=== PATIENT | male | born 1955 | race Caucasian/White ===

== ENCOUNTER 2020-01-06 07:04 | Day surgery (SDC) | payer BC ==
[2020-01-06] MEDS ORDERED: Midazolam 1 MG/ML 2 ML SDV IV ONE (07:05)
[2020-01-06] MEDS ORDERED: Propofol 200 MG/20 ML SDV IV ONE (07:05)
[2020-01-06] MEDS ORDERED: Sodium Chloride 0.9% 10 ML Syringe FLUSH PRN (07:15)
[2020-01-06] MEDS ORDERED: Lactated Ringers 1,000 ML IV SCH (07:15)
--- NOTE | 2020-01-06 09:19 | PCM.OPNOTE ---
- General Post-Op/Procedure Note Date of Surgery/Procedure: 01/06/20 Operative Procedure(s): c scope with biopsy Findings: sigmoid diverticulosis descending colon polyp Pre Op Diagnosis: + Cologuard Post-Op Diagnosis: sigmoid diverticulosis. descending colon polyp Anesthesia Technique: MAC Primary Surgeon: Nabeel Ventura Anesthesia Provider: Alley Hsu Pathology: descending colon polyp Complications: None Condition: Good Free Text/Narrative:: see dictation
--- NOTE | 2020-01-06 13:59 | OR ---
DATE OF OPERATION: 01/06/2020 SURGEON: Nabeel Ventura MD PROCEDURE PERFORMED: Colonoscopy with cold forceps biopsy. PREOPERATIVE DIAGNOSIS: Positive Cologuard test. POSTOPERATIVE DIAGNOSIS: Descending colon polyp, as well as sigmoid diverticulosis. INDICATIONS FOR PROCEDURE: This is a 64-year-old white male who recently underwent a Cologuard test, this came back positive. He was offered and accepted a colonoscopy for diagnostic purposes. DESCRIPTION OF OPERATION: After an excellent IV sedation was administered, digital rectal exam was performed. No marked abnormality was noted. Flexible colonoscope was inserted and advanced without difficulty to the patient's cecum. Prep was excellent. Following findings were noted: Ascending colon, unremarkable. Transverse colon, unremarkable. Descending colon, a small 5 mm polyp, biopsied with cold biopsy forceps and sent for permanent. It was obliterated with forceps. Sigmoid, diverticulosis was noted. Rectum and anus, unremarkable. The patient tolerated the procedure well. Results will be sent via letter. /[id number] /MODL
== END 2020-01-06 10:09 | disposition home or self-care (01) ==
LOC: FB.SDS 07:04
PROVIDERS: ATTEND Surgery
DX: D12.4 Benign neoplasm of descending colon (principal); K57.30 Diverticulosis of large intestine without perforation or abscess without bleeding; I10 Essential (primary) hypertension; Z79.82 Long term (current) use of aspirin; Z79.899 Other long term (current) drug therapy
CPT/HCPCS: 00811-QZ; 88305; J2250; J2704; J7120